=== PATIENT | male | born 1925 | race Caucasian/White ===

== ENCOUNTER → 2016-12-30 | Day surgery (SDC) | payer OTHER ==
[~2016-12-30] MED LIST: HEPARIN SODIUM - IV 10,000 UNITS/10 ML VIAL ONE; LIDOCAINE 1%/EPINEPHrine 1:100,000 SOLN 30 ML VIAL ONE; PROPOFOL 500 MG/50 ML BTL IV ONE; SODIUM CHLOR 0.9% 1000 ML BAG IV ONE; SODIUM CHLORIDE 0.9% 20 ML VIAL ONE; SODIUM CHLORIDE 0.9% INJ 10 ML ONE; ceFAZolin INJ 1,000 MG VIAL ONE
--- NOTE | 2017-01-01 23:49 | MP ---
cc: DOROTEO WILBURN WILLIAM B. MD SUTTON, JAMES DATE OF SURGERY: 12/30/2016 PREOPERATIVE DIAGNOSIS: Chronic kidney disease - needs permanent hemodialysis access. POSTOPERATIVE DIAGNOSIS Chronic kidney disease - needs permanent hemodialysis access. PROCEDURE Right brachiocephalic AV fistula creation. SURGEON Bonifacio Nair MD ANESTHESIA Local MAC DESCRIPTION OF OPERATIVE PROCEDURE: With the patient in the supine position and under IV sedation, the right arm was prepped with Betadine and draped in a sterile fashion. One gram of Ancef was administered prophylactically and following a protocol time-out, the skin and subcutaneous tissue along the medial supra antecubital area was preemptively infiltrated with 0.5% Marcaine with epinephrine. A curvilinear 3 cm incision was performed through which the cephalic vein and brachial artery were circumferentially mobilized. The vein was ligated distally with 4-0 silk, transected proximal to the ligature, spatulated on end, flushed with heparinized saline and occluded with the Yasargil clip. The brachial artery was occluded proximally and distally with Yasargil clips. A vertical 4-mm arteriotomy was performed along the anterolateral surface and the artery flushed proximally and distally with heparinized saline. An end-to-side anastomosis was accomplished between the vein and arteriotomy with continuous 7-0 Prolene. The occluding Yasargil clips were removed, reestablishing pulsatile flow within the brachial artery as well as into the cephalic vein. Right radial pulse remained palpable with normal perfusion right hand. Strict hemostasis was achieved. The incision was closed with interrupted subcutaneous 4-0 Monocryl, continuous subcuticular 5-0 Monocryl, reinforced with Steri-Strips and covered with sterile gauze. Instrument, needle, sponge count correct x2. No operative complications. The patient returned to the recovery room in stable condition having tolerated the procedure well. Watson Nair MD JTS/YAEL /9:06 AM /11:33 PM
== END | disposition home or self-care (01) ==
LOC: ESDC 12:28
PROVIDERS: ATTEND Surgery Vascular Surgery
DX: N18.6 End stage renal disease (principal)
CPT/HCPCS: 01844; 36825; J0690; J1644; J3010; J7030